=== PATIENT | male | born 1950 | race Caucasian/White ===

== ENCOUNTER → 2017-06-07 | Outpatient (CLI) | payer OTHER ==
[~2017-06-07] MED LIST: ACETAMINOPHEN325 M1 PO; ACYCLOVIR 400400 M1 PO; AVELOX 400 MG400 MG; AZITHROMYCIN 2250 MG PO; CIPRO250 M1; COUMADIN 2.5MG2.5 M1 PO; COUMADIN PO; DILTIAZEM HCL60 MG PO; PACERONE 200 M200 MG PO; SORINE 80 MG TA80 M1 PO; STERAPRED DS10 MG PO; TOPROL XL50 MG PO; XANAX 0.25 MG0.25 MG PO; XARELTO20 MG PO
== END ==
LOC: CAT 10:30
DX: R91.1 Solitary pulmonary nodule (principal)